=== PATIENT | female | born 1965 | race Two or more races ===

== ENCOUNTER 2024-01-09 11:27 | Emergency (ER) | payer OTHER ==
[2024-01-09 11:42] VITALS: BP 148/88; PULSE 80; RESP 16; TEMP 98.5; BMI 29.6
[2024-01-09] MEDS: ALBUTEROL SO4 2.5/IPRATROPIUM 0.5 INH SOL 3 ML VIAL.NEB. NEB SCH (12:16)
[2024-01-09] MEDS ORDERED: predniSONE 20 MG TABLET (UD) ONE (13:34)
[2024-01-09] MEDS: predniSONE 20 MG TABLET (UD) PO ONE (13:47)
== END 2024-01-09 14:13 | disposition home or self-care (01) ==
LOC: JER 11:27
PROC: 3E0F7GC Introduction of Other Therapeutic Substance into Respiratory Tract, Via Natural or Artificial Opening (ICD-10-PCS; principal; 2024-01-09)
DX: R05.9 Cough, unspecified (principal); R51.9 Headache, unspecified; J45.901 Unspecified asthma with (acute) exacerbation; R07.9 Chest pain, unspecified; R06.02 Shortness of breath
CPT/HCPCS: 93005; 93010; 99283-25